=== PATIENT | female | born 1985 | race Two or more races ===

== ENCOUNTER 2023-08-26 09:51 | Emergency (ER) | payer MEDICAID ==
[~2023-08-26] VITALS: Ht 154.9 cm; Wt 86.1 kg
[2023-08-26 10:05] VITALS: BP 120/77; PULSE 85; RESP 18; TEMP 98.5; O2SAT 97
[2023-08-26] MEDS ORDERED: KETO2CRE4 TOP (10:57)
== END 2023-08-26 11:17 | disposition home or self-care (01) ==
LOC: ER 09:51
DX: L30.4 Erythema intertrigo (principal)